=== PATIENT | female | born 1985 | race Caucasian/White ===

== ENCOUNTER → 2017-04-17 | Outpatient (CLI) | payer OTHER ==
[2015-12-25 11:33] VITALS: BP 122/69
--- NOTE | 2017-04-17 10:35 | RAD ---
Examination: 3 views of the right shoulder History: History of right shoulder injury, numbness Comparison: None available Findings: The humerus head is within the glenoid. The acromioclavicular joint, glenohumeral joint grossly appears unremarkable. There is no acute fracture identified. Impression: No acute osseous findings.
== END | disposition home or self-care (01) ==
LOC: RAD 09:50
PROVIDERS: ATTEND Neuromusculoskeletal Medicine, Sports Medicine
DX: M75.91 Shoulder lesion, unspecified, right shoulder (principal); R20.0 Anesthesia of skin
CPT/HCPCS: 73030

== ENCOUNTER 2018-12-13 16:16 | Emergency (ER) | payer BC, OTHER ==
[~2018-12-13] VITALS: Ht 170.2 cm; Wt 96.6 kg
[2018-12-13 16:24] VITALS: BP 131/75
[2018-12-13] MEDS ORDERED: HYDR115S2 PO (16:43)
[2018-12-13] MEDS ORDERED: ALBU2.5V8 INH (16:43)
[2018-12-13] MEDS ORDERED: DOXY100C2 PO (16:43)
--- NOTE | 2018-12-13 16:43 | PHYS DOC ---
Past Medical History Past Medical History: Anxiety, Bipolar Additional Past Medical Histor: ptsd Past Surgical History: Cancer Surgery Additional Past Surgical Histo: LEEP Smoking: Cigarettes Alcohol Use: None Drug Use: None Adult General Chief Complaint Chief Complaint: COUGH HPI HPI Patient is a 33 year old female with history of smoking who presents with complaining of cough. Patient complaining of productive cough with yellow sputum and nasal congestion for the last one week associated with chest soreness during episodes of cough and shortness of breath. Patient complaining of dryness of her throat and generalized weakness without fever and chills, nausea and vomiting, diarrhea and constipation, urinary symptoms, sick contact. Patient states she took ohhm-mdp-axnckem medication without improvement of her condition. Review of Systems Review of Systems Constitutional: Denies fever or chills [] Eyes: Denies change in visual acuity, redness, or eye pain [] HENT: Reports nasal congestion or sore throat Respiratory: Denies cough and shortness of breath Cardiovascular: No additional information not addressed in HPI [] GI: Denies abdominal pain, nausea, vomiting, bloody stools or diarrhea [] : Denies dysuria or hematuria [] Musculoskeletal: Denies back pain or joint pain [] Integument: Denies rash or skin lesions [] Neurologic: Denies headache, focal weakness or sensory changes [] Endocrine: Denies polyuria or polydipsia [] All other systems were reviewed and found to be within normal limits, except as documented in this note. Allergies Allergies Allergies Coded Allergies Type Severity Reaction Last Updated Verified codeine Allergy Intermediate Unknown 01/22/15 No Physical Exam Physical Exam Constitutional: Well nourished, mild distress, non-toxic appearance. [] HENT: Normocephalic, atraumatic, bilateral external ears normal, oropharynx moist, no oral exudates, nose normal. [] Eyes: PERRLA, EOMI, conjunctiva normal, no discharge. [] Neck: Normal range of motion, no tenderness, supple, no stridor. [] Cardiovascular:Heart rate regular rhythm, no murmur [] Lungs & Thorax: Mild rhonchi without respiratory distress or intercostal retraction, no wheezing. Abdomen: Bowel sounds normal, soft, no tenderness, no masses, no pulsatile masses. [] Skin: Warm, dry, no erythema, no rash. [] Back: No tenderness, no CVA tenderness. [] Extremities: No tenderness, no cyanosis, no clubbing, ROM intact, no edema. [] Neurologic: Alert and oriented X 3, normal motor function, normal sensory function, no focal deficits noted. [] Psychologic: Affect anxious, judgement normal, mood normal. [] Current Patient Data Vital Signs Vital Signs Date Time Temp Pulse Resp B/P (MAP) Pulse Ox O2 Delivery O2 Flow Rate FiO2 12/13/18 16:24 97.6 101 16 131/75 (93) 97 Room Air 97.6 EKG EKG [] Radiology/Procedures Radiology/Procedures [] Course & Med Decision Making Course & Med Decision Making Evaluation of patient in ER showed 33-year-old female patient with cough and shortness of breath for one week. Patient had unremarkable physical exam except for mild rhonchi. Plan discharge patient home with diagnose of bronchitis. Dragon Disclaimer Dragon Disclaimer This electronic medical record was generated, in whole or in part, using a voice recognition dictation system. Departure Departure Impression: Primary Impression: Acute bronchitis Additional Impressions: Tobacco abuse Tobacco abuse counseling Disposition: HOME, SELF-CARE (at 1640) Condition: STABLE Referrals: SHERRY BOBO MD (PCP) Patient Instructions: Acute Bronchitis, Smoking Cessation, Tips For Success Additional Instructions: Drink plenty of liquids Follow-up with your primary care physician in 3-5 days Return to ER if not getting better Scripts Doxycycline Hyclate (DOXYCYCLINE HYCLATE) 100 Mg Capsule 1 CAP PO BID, #20 CAP Prov: JAQUELINE MELGOZA MD 12/13/18 Hydrocodone/Chlorphen P-Stirex (Tussionex Pennkinetic Susp) 115 Ml Preethi.er.12h 5 ML PO BID for cough and congestion, #60 ML Prov: JAQUELINE MELGOZA MD 12/13/18 Albuterol Sulfate (PROAIR HFA INHALER) 8.5 Gm Hfa.aer.ad 2 PUFF INH PRN Q6HRS PRN for SHORTNESS OF BREATH, #1 INHALER 0 Refills Prov: JAQUELINE MELGOZA MD 12/13/18 Problem Qualifiers Primary Impression: Acute bronchitis Bronchitis organism: unspecified organism Qualified Codes: J20.9 - Acute bronchitis, unspecified JAQUELINE MELGOZA MD December 13, 2018 16:43
== END 2018-12-13 16:46 | disposition home or self-care (01) ==
LOC: ER 16:16
DX: J20.9 Acute bronchitis, unspecified (principal); R53.1 Weakness; Z71.6 Tobacco abuse counseling; F41.9 Anxiety disorder, unspecified; F31.9 Bipolar disorder, unspecified; F17.210 Nicotine dependence, cigarettes, uncomplicated; Z88.5 Allergy status to narcotic agent
CPT/HCPCS: 99283

== ENCOUNTER 2019-08-28 10:23 | Emergency (ER) | payer BC, OTHER ==
[~2019-08-28] VITALS: Ht 170.2 cm; Wt 79.5 kg
[~2019-08-28 10:23] MED LIST: ALBU2.5V8 INH; DOXY100C2 PO; HYDR115S2 PO
[2019-08-28 10:37] VITALS: BP 116/82
[2019-08-28] MEDS ORDERED: DEXAMETHASONE 4 MG TABLET PO STA (10:40)
[2019-08-28] MEDS ORDERED: IPRATRPIUM/ALBUTEROL 0.5/2.5MG 3 ML NEBU. NEB ONE (10:45)
[2019-08-28] MEDS ORDERED: METH4TAB2 PO (10:57)
--- NOTE | 2019-08-28 10:57 | PHYS DOC ---
Past Medical History Past Medical History: Anxiety, Bipolar Additional Past Medical Histor: ptsd Past Surgical History: Cancer Surgery Additional Past Surgical Histo: LEEP Smoking Status: Current Every Day Smoker Alcohol Use: None Drug Use: None Adult General Chief Complaint Chief Complaint: COUGH HPI HPI Patient is a 33 year old female who presents with cough, runny nose been ongoing for week. The patient also states she feels short of breath. States she's been taking Advil sinus and congestion medicine. The patient states has not been helping. The patient states that is not had any fevers. Denies additional symptoms. Complete ROS were reviewed and found to be within normal limits, except as documented in the HPI Current Medications Current Medications Current Medications Medications (Trade) Dose Ordered Sig/Sánchez Start Time Stop Time Status Last Admin Dose Admin Albuterol/ Ipratropium (Duoneb) 3 ml 1X ONCE 08/28/19 10:45 08/28/19 10:46 DC 08/28/19 10:49 3 ML Dexamethasone (Decadron) 10 mg 1X STAT 08/28/19 10:40 08/28/19 10:43 DC 08/28/19 10:47 10 MG Allergies Allergies Allergies Coded Allergies Type Severity Reaction Last Updated Verified codeine Allergy Intermediate Unknown 01/22/15 No Physical Exam Physical Exam Constitutional: Well developed, well nourished, no acute distress, non-toxic appearance. [] HENT: Normocephalic, atraumatic, bilateral external ears normal, oropharynx moist, no oral exudates, nose normal. [] Eyes: PERRLA, EOMI, conjunctiva normal, no discharge. [] Neck: Normal range of motion, no tenderness, supple, no stridor. [] Cardiovascular:Heart rate regular rhythm, no murmur [] Lungs & Thorax: Bilateral breath sounds have scattered rhonchi and wheezing. Skin: Warm, dry, no erythema, no rash. [] Neurologic: Alert and oriented X 3, normal motor function, normal sensory function, no focal deficits noted. [] Psychologic: Affect normal, judgement normal, mood normal. [] Current Patient Data Vital Signs Vital Signs Date Time Temp Pulse Resp B/P (MAP) Pulse Ox O2 Delivery O2 Flow Rate FiO2 08/28/19 10:49 97 Room Air 08/28/19 10:37 97.7 91 20 116/82 (93) 97.7 EKG EKG [] Radiology/Procedures Radiology/Procedures [][facility] [address] [place], [place] [id number] IMAGING REPORT Signed PATIENT: TALITA LOCKETT ACCOUNT: [id number] : 1985 LOCATION: ER AGE: 33 SEX: F EXAM STATUS: REG ER ORD. PHYSICIAN: JORGE LUIS FISHER APRN REASON: cough PROCEDURE: CHEST PA & LATERAL Study: CHEST PA LATERAL Indication: Cough. Comparison: None. Findings: No lobar infiltrate, pleural effusion or pneumothorax. Unremarkable cardiomediastinal silhouette and cristhian. Impression: No acute radiographic abnormality of the chest. Electronically signed by: JESSE MCKEON MD (08/28/2019 11:06 AM) [id number] DICTATED and SIGNED BY: JESSE MCKEON MD DATE: 08/28/19 1106 Course & Med Decision Making Course & Med Decision Making Pertinent Labs and Imaging studies reviewed. (See chart for details) Will give Decadron and give breathing treatment. Will also get Chest x-ray. Will d/c home with medrol dose pack. Patient has albuterol soln at home. Dragon Disclaimer Dragon Disclaimer This electronic medical record was generated, in whole or in part, using a voice recognition dictation system. Departure Departure Impression: Primary Impression: Bronchitis Disposition: 01 HOME, SELF-CARE Condition: STABLE Referrals: SHERRY BOBO MD (PCP) Patient Instructions: Acute Bronchitis Additional Instructions: Thank you for visiting [facility]. We appreciate you trusting us with your care. If any additional problems come up don't hesitate to return to visit us. Please follow up with your primary care provider so they can plan a dditional care if needed and know about the problem that you had. If symptoms worsen come back to the Emergency Department. Any concerning symptoms that start such as chest pain, shortness of air, weakness or numbness on one side of the body, running high fevers or any other concerning symptoms return to the ER. Scripts Methylprednisolone (MEDROL) 4 Mg Tab.ds.pk 1 PKG PO UD, #1 PKG Prov: JORGE LUIS FISHER APRN 08/28/19 JORGE LUIS FISHER APRN Aug 28, 2019 10:57
--- NOTE | 2019-08-28 11:09 | RAD ---
Study: CHEST PA LATERAL Indication: Cough. Comparison: None. Findings: No lobar infiltrate, pleural effusion or pneumothorax. Unremarkable cardiomediastinal silhouette and cristhian. Impression: No acute radiographic abnormality of the chest. Electronically signed by: JESSE MCKEON MD (08/28/2019 11:06 AM) [id number]
== END 2019-08-28 11:18 | disposition home or self-care (01) ==
LOC: ER 10:23
DX: J40 Bronchitis, not specified as acute or chronic (principal); R09.89 Other specified symptoms and signs involving the circulatory and respiratory systems; R06.02 Shortness of breath; F41.9 Anxiety disorder, unspecified; F31.9 Bipolar disorder, unspecified; F43.10 Post-traumatic stress disorder, unspecified; F17.200 Nicotine dependence, unspecified, uncomplicated; Z98.890 Other specified postprocedural states
CPT/HCPCS: 71046; 94640; 99284; J7620; J8540